=== PATIENT | male | born 1980 | race Caucasian/White ===

== ENCOUNTER 2017-08-25 18:27 | Emergency (ER) | payer MEDICAID ==
[2017-08-25 18:57] VITALS: BP 117/80; PULSE 67; RESP 18; TEMP 99; O2SAT 100; BMI 25.8
[2017-08-25 19:42] LABS: BASO # 0.01 K/mm3 (0.0-2.0); BASO % 0.2 % (0.0-3.0); EOS # 0.1 (0.0-0.7); EOS % 2.3 % (1.5-5.0); GRAN # 2.08 (1.4-6.5); GRAN % 46.8 % (50.0-68.0); HEMATOCRIT 40.9 % (42.0-52.0); LYMPH # 1.8 (1.2-3.4); MEAN CORPUSCULAR HEMOGLOBIN 28.7 pg (25.0-35.0); MEAN PLATELET VOLUME 9.9 fl (7.0-11.0); MONO # 0.4 (0.1-0.6); MONO % 9.7 % (1.0-6.0); RED CELL DISTRIBUTION WIDTH 12.1 % (11.5-14.5); WHITE BLOOD COUNT 4.4 10^3/ul (4.5-11.0)
[2017-08-25 19:56] LABS: ALB/GLOB RATIO 1.6 (1.1-1.8); ALKALINE PHOSPHATASE 54 U/L (38-126); ALT/SGPT 65 U/L (7-56); AST/SGOT 42 U/L (17-59); BILIRUBIN,TOTAL 0.6 mg/dL (0.2-1.3); BLOOD UREA NITROGEN 18 mg/dL (7-21); CALCIUM 9.8 mg/dL (8.4-10.5); CARBON DIOXIDE 26 mmol/L (21-33); CHLORIDE 103 mmol/L (98-107); GFR AFRICAN-AMERICAN > 60; GLUCOSE,RANDOM 106 mg/dL (70-110); LIPASE 87 U/L (23-300); POTASSIUM 3.9 mmol/L (3.6-5.0); SODIUM 140 mmol/L (132-148); TOTAL PROTEIN 7.4 g/dL (5.8-8.3)
--- NOTE | 2017-08-25 20:20 | ED PDOC ---
Arrival/HPI - General Chief Complaint: Abdominal Pain Time Seen by Provider: 08/25/17 18:55 Historian: Patient - History of Present Illness Narrative History of Present Illness (Text): 08/25/17 20:16 37yr old male presents today with a 5 year history of intermittent epigastric pain. pt states about 3 years ago he had an endoscopy that was normal. pt states he hasnt followed up with anyone since. pt states he has been dealing with the pain since. pt states the pain comes and goes. pt states he has been having a burning sensation in the epigastric region for the past 3 months. pt states pain is worse after eating. pt denies n/v/d/c. no cp or sob. pt states he eats late at night and wakes up in the morning with reflux feeling and cough. no fever/chills. no urinary symptoms. denies back pain. no trauma or injury. pt states he has been taking otc medications without improvement. pt is requesting referral to GI specialist. no other complaints. Quality: Burning Severity Level: Mild Past Medical History - Provider Review Nursing Documentation Reviewed: Yes - Travel History Have you recently traveled outside [place] w/in the past 3 mons?: No - Tetanus Immunization Tetanus Immunization: Unknown - Cardiac Hx Cardiac Disorders: No - Pulmonary Hx Respiratory Disorders: No - Neurological Hx Neurological Disorder: No - HEENT Hx HEENT Disorder: No - Renal Hx Renal Disorder: No - Endocrine/Metabolic Hx Endocrine Disorders: No - Hematological/Oncological Hx Blood Disorders: No - Integumentary Hx Dermatological Disorder: No - Musculoskeletal/Rheumatological Hx Musculoskeletal Disorders: No - Gastrointestinal Hx Gastrointestinal Disorders: Yes Hx Gastroesophageal Reflux: Yes - Genitourinary/Gynecological Hx Genitourinary Disorders: No - Psychiatric Hx Psychophysiologic Disorder: No Hx Substance Use: No Family/Social History - Physician Review Nursing Documentation Reviewed: Yes Family/Social History: Unknown Family HX Smoking Status: Heavy Smoker > 10 Cigarettes Daily Hx Alcohol Use: Yes Frequency of alcohol use: Socially Hx Substance Use: No Allergies/Home Meds Allergies/Adverse Reactions: Allergies No Known Allergies Allergy (Verified 08/25/17 18:55) Review of Systems - Review of Systems Constitutional: absent: Fatigue, Fevers Respiratory: absent: SOB, Cough Cardiovascular: absent: Chest Pain, Palpitations Gastrointestinal: Abdominal Pain. absent: Constipation, Diarrhea, Nausea, Vomiting, Appetite Changes Genitourinary Male: absent: Dysuria, Frequency, Hematuria Musculoskeletal: absent: Arthralgias, Back Pain Skin: absent: Rash, Pruritis Neurological: absent: Headache, Dizziness Psychiatric: absent: Anxiety, Depression, Suicidal Ideation Physical Exam Vital Signs Reviewed: Yes Vital Signs Temp Pulse Resp BP Pulse Ox 08/25/17 18:45 99.0 F 67 18 117/80 100 Temperature: Afebrile Blood Pressure: Normal Pulse: Regular Respiratory Rate: Normal Appearance: Positive for: Well-Appearing, Non-Toxic, Comfortable Pain Distress: None Mental Status: Positive for: Alert and Oriented X 3 - Systems Exam Head: Present: Atraumatic Mouth: Present: Moist Mucous Membranes Neck: Present: Normal Range of Motion Respiratory/Chest: Present: Clear to Auscultation, Good Air Exchange. No: Respiratory Distress, Accessory Muscle Use Cardiovascular: Present: Regular Rate and Rhythm, Normal S1, S2. No: Murmurs Abdomen: Present: Tenderness (minimal epigastric tenderness), Normal Bowel Sounds. No: Distention, Peritoneal Signs, Rebound, Guarding Back: Present: Normal Inspection. No: CVA Tenderness, Midline Tenderness, Paraspinal Tenderness Upper Extremity: Present: Normal ROM Lower Extremity: Present: Normal ROM Neurological: Present: GCS=15, Speech Normal Skin: Present: Warm, Dry, Normal Color. No: Rashes Psychiatric: Present: Alert, Oriented x 3 Medical Decision Making ED Course and Treatment: 08/25/17 20:27 Patient is nontoxic well appearing with stable vital signs presenting with chronic epigastric abdominal pain pt given protonix IV. CBC wnl CMP wnl Lipase wnl cxr; wnl Urinalysis wnl Ultrasound:FINDINGS: Liver: The liver is increased in echogenicity, most commonly due to fatty infiltration, but other chronic liver diseases may have a similar appearance. Within the right hepatic lobe, there is a 2.0 x 3.0 x 2.7 cm area of hypoechogenicity, suggestive of focal fatty sparing. A hypoechoic lesion is difficult to exclude. The liver measures 13.4 x 13.1 cm. Gallbladder: No discrete gallstones are visualized. There is no gallbladder wall thickening. Common bile duct: The common bile duct measures 0.2 cm in diameter, which is within normal limits. Pancreas: There is suboptimal evaluation of the pancreas due to bowel gas. Kidneys: The right kidney measures 11.6 x 4.5 x 4.4 cm. The left kidney measures 10.7 x 5.8 x 5.4 cm. There is no hydronephrosis or shadowing nephrolithiasis bilaterally. Spleen: The spleen measures 11.3 x 6.5 cm and is normal in echotexture. Aorta: There is a limited evaluation of the abdominal aorta. Flow is visualized within the abdominal aorta. Inferior vena cava: The visualized IVC is patent. IMPRESSION: 1. The liver is increased in echogenicity, most commonly due to fatty infiltration, but other chronic liver diseases may have a similar appearance. 2. Within the right hepatic lobe, there is a 2.0 x 3.0 x 2.7 cm area of hypoechogenicity, suggestive of focal fatty sparing. A hypoechoic lesion is difficult to exclude. This can be further evaluated with MRI with/without contrast. 3. Additional findings described above. Patient reassessment: pt non toxic well appearing; no distress. pt feeling better after medications. Discussed all results with patient in depth. stressed importance of f/u with GI for abnormal US, liver lesion; may need MRI for further evaluation. pt advised to f/u with PMD and GI specialist; advised taking medications as prescribed. advised immediate return if symptoms worsen, persist or if new symptoms develop. Patient verbalizes understanding of discharge instructions and need for immediate followup. Impression: Abdominal pain, liver lesion omeprazole; 1 capsule daily Follow up with the GI doctor within the next 2 days. Follow up with primary care physician within the next 2 days Return immediately if symptoms worsen persist or if new symptoms develop: High fevers, increasing pain, vomiting, diarrhea or any other concerning symptoms develop - Lab Interpretations Lab Results: 08/25/17 19:32 08/25/17 19:32 Lab Results 08/25/17 19:32: WBC 4.4 L, RBC 4.99, Hgb 14.3, Hct 40.9 L, MCV 82.0, MCH 28.7, MCHC 35.0, RDW 12.1, Plt Count 149, MPV 9.9, Gran % 46.8 L, Lymph % (Auto) 41.0 H, Thayer % (Auto) 9.7 H, Eos % (Auto) 2.3, Baso % (Auto) 0.2, Gran # 2.08, Lymph # 1.8, Thayer # 0.4, Eos # 0.1, Baso # 0.01 08/25/17 19:32: Sodium 140, Potassium 3.9, Chloride 103, Carbon Dioxide 26, Anion Gap 15, BUN 18, Creatinine 1.2, Est GFR ( Amer) > 60, Est GFR (Non- Af Amer) > 60, Random Glucose 106, Calcium 9.8, Total Bilirubin 0.6, AST 42, ALT 65 H, Alkaline Phosphatase 54, Total Protein 7.4, Albumin 4.5, Globulin 2.9 , Albumin/Globulin Ratio 1.6, Lipase 87 - RAD Interpretation Radiology Orders: 08/25/17 19:09 CHEST PORTABLE [RAD] Stat ABDOMEN COMPLETE [US] Stat - Medication Orders Current Medication Orders: Discontinued Medications Pantoprazole Sodium (Protonix Inj) 40 mg IVP STAT STA Stop: 08/25/17 19:11 Last Admin: 08/25/17 19:32 Dose: 40 mg IVP Administration Document 08/25/17 19:32 JOHANA (Rec: 08/25/17 19:32 JOHANA [facility] [place]-[id number]) Charges for Administration # of IVP Administrations 1 Disposition/Present on Arrival - Present on Arrival Any Indicators Present on Arrival: No History of DVT/PE: No History of Uncontrolled Diabetes: No Urinary Catheter: No History of Decub. Ulcer: No History Surgical Site Infection Following: None - Disposition Have Diagnosis and Disposition been Completed?: Yes Diagnosis: Abdominal pain, Liver lesion Disposition: HOME/ ROUTINE Disposition Time: 21:36 Patient Plan: Discharge Patient Problems: Current Active Problems Problem Status Onset Abdominal pain Acute Liver lesion Acute Condition: GOOD Discharge Instructions (ExitCare): Abdominal Pain (ED), Diet for Ulcers and Gastritis (ED) Additional Instructions: omeprazole; 1 capsule daily Follow up with the GI doctor within the next 2 days. Follow up with primary care physician within the next 2 days Return immediately if symptoms worsen persist or if new symptoms develop: High fevers, increasing pain, vomiting, diarrhea or any other concerning symptoms develop Prescriptions: Omeprazole 20 mg PO DAILY #20 cap Referrals: Kayden Champion MD [Primary Care Provider] - Follow up with primary Edgard Pastrana MD [Medical Doctor] - Follow up with primary Forms: [employer] (Lithuanian)
--- NOTE | 2017-08-25 20:51 | US ---
EXAM: US Abdomen Complete EXAM DATE/TIME: 08/25/2017 7:09 PM CLINICAL HISTORY: The patient age is 37 years old and is male; Pain; Abdominal pain; Epigastric; Additional info: Epigastric abd pain Facility exam id and description: Us abd abdomen complete TECHNIQUE: Real-time ultrasound of the abdomen (complete) with image documentation. COMPARISON: No relevant prior studies available. FINDINGS: Liver: The liver is increased in echogenicity, most commonly due to fatty infiltration, but other chronic liver diseases may have a similar appearance. Within the right hepatic lobe, there is a 2.0 x 3.0 x 2.7 cm area of hypoechogenicity, suggestive of focal fatty sparing. A hypoechoic lesion is difficult to exclude. The liver measures 13.4 x 13.1 cm. Gallbladder: No discrete gallstones are visualized. There is no gallbladder wall thickening. Common bile duct: The common bile duct measures 0.2 cm in diameter, which is within normal limits. Pancreas: There is suboptimal evaluation of the pancreas due to bowel gas. Kidneys: The right kidney measures 11.6 x 4.5 x 4.4 cm. The left kidney measures 10.7 x 5.8 x 5.4 cm. There is no hydronephrosis or shadowing nephrolithiasis bilaterally. Spleen: The spleen measures 11.3 x 6.5 cm and is normal in echotexture. Aorta: There is a limited evaluation of the abdominal aorta. Flow is visualized within the abdominal aorta. Inferior vena cava: The visualized IVC is patent. IMPRESSION: 1. The liver is increased in echogenicity, most commonly due to fatty infiltration, but other chronic liver diseases may have a similar appearance. 2. Within the right hepatic lobe, there is a 2.0 x 3.0 x 2.7 cm area of hypoechogenicity, suggestive of focal fatty sparing. A hypoechoic lesion is difficult to exclude. This can be further evaluated with MRI with/without contrast. 3. Additional findings described above.
[2017-08-25 21:37] LABS: URINE BILIRUBIN NEGATIVE (NEGATIVE); URINE BLOOD NEGATIVE (NEGATIVE); URINE GLUCOSE (UA) NEGATIVE (NEGATIVE); URINE KETONE NEGATIVE (NEGATIVE); URINE LEUKOCYTE ESTERASE NEGATIVE Leu/uL (NEGATIVE); URINE PROTEIN NEGATIVE mg/dL (<30 mg/dL); URINE UROBILINOGEN 0.2 E.U./dL (<1 E.U./dL)
[2017-08-25 21:43] LABS: URINE APPEARANCE CLEAR (CLEAR); URINE COLOR LIGHT YELLOW (YELLOW)
--- NOTE | 2017-08-26 08:55 | RAD ---
HISTORY: Epigastric/abdominal pain. Portable study 19:22. COMPARISON: No prior. FINDINGS: LUNGS: No active pulmonary disease. PLEURA: No significant pleural effusion identified, no pneumothorax apparent. CARDIOVASCULAR: Normal. OSSEOUS STRUCTURES: No significant abnormalities. VISUALIZED UPPER ABDOMEN: Normal. OTHER FINDINGS: None. IMPRESSION: No active disease. Concordant results with the preliminary interpretation rendered by the emergency department physician procedure.
== END 2017-08-25 22:05 | disposition home or self-care (01) ==
LOC: ED 18:27 → MERGE 18:27 → ED 22:05
DX: K76.9 Liver disease, unspecified (principal); R10.13 Epigastric pain; F17.210 Nicotine dependence, cigarettes, uncomplicated
CPT/HCPCS: 71010; 76700; 80053; 81003; 83690; 85025; 96374; 99283; C9113